=== PATIENT | male | born 1970 | race African-American/Black ===

== ENCOUNTER 2019-08-26 21:23 | Inpatient (IN) ==
[2019-08-26] MEDS ORDERED: ASPIRIN 325 MG TABLET PO STA (21:47)
[2019-08-26 21:56] LABS: Basophils % 0.4 % (0.0-0.8); Eosinophils # 0.1 10*3/uL (0.0-0.87); Eosinophils % 0.9 % (0.00-10.9); Hematocrit 45.1 VOL% (42.0-52.0); Hemoglobin 14.5 GM/DL (14.0-18.0); Immature Granulocytes % 0.3 %; Immature Granulocytes Absolute 0.03 #; Lymphocytes # 3.4 10*3/uL (1.4-4.0); Mean Corpuscular HGB Conc 32.2 GM/DL (32-36); Mean Corpuscular Volume 90.9 FL (87-102); Mean Platelet Volume 10.4 FL (9.6-12.0); Monocytes % 9.9 % (1.7-12.7); Neutrophils % 53.5 % (38.7-73.9); Platelet Count 267 T/CUMM (130-400); Red Blood Count 4.96 MC/CUMM (3.8-5.5); Red Cell Distribution Width 14.4 % (9.3-17.3); White Blood Count 9.8 T/CUMM (4-12)
[2019-08-26 22:18] LABS: Alanine Aminotransferase 23 U/L (16-61); Albumin 3.8 G/DL (3.4-5.0); Alkaline Phosphatase 114 U/L (45-117); Aspartate Amino Transferase 18 U/L (0-37); Bilirubin,Total < 0.39 MG/DL (0.2-1.0); Blood Urea Nitrogen 12 MG/DL (7-18); Calcium 9.5 MG/DL (8.5-10.1); Estimated Glom Filtration Rate 95 ML/MIN; Glucose 94 MG/DL (74-106); Osmolality,Calculated 276.5 MOS/KG (273-304); Total Protein 7.8 G/DL (6.4-8.3); Troponin I < 0.015 NG/ML (0.00-0.045)
[2019-08-26 22:36] LABS: INR 0.9; PT Patient Result 10.3 SECS (9.6-12.2)
[2019-08-26] MEDS ORDERED: MORPHINE 4 MG/1 ML VIAL IV PRN (22:40)
[2019-08-26] MEDS ORDERED: POTASSIUM CHLORIDE 20 MEQ TABLET PO PRN (22:40)
[2019-08-26] MEDS ORDERED: MAGNESIUM SULF RIDER 2 GM in PREMIX 1 EACH IV PRN (22:40)
[2019-08-26] MEDS ORDERED: DEXTROSE 50% 25 GM/50 ML VIAL IV PRN (22:40)
[2019-08-26] MEDS ORDERED: NITROGLYCERIN SL 0.4 MG TABLET SL PRN (22:40)
[2019-08-26] MEDS ORDERED: ONDANSETRON 4 MG/2 ML VIAL IV PRN (22:40)
[2019-08-26] MEDS ORDERED: BISACODYL 5 MG TABLET PO PRN (22:40)
[2019-08-26] MEDS ORDERED: GLUCAGON 1 MG VIAL IM PRN (22:40)
[2019-08-26] MEDS ORDERED: ACETAMINOPHEN 325 MG TABLET PO PRN (22:40)
[2019-08-26] MEDS ORDERED: ALUM/MAG/SIMETH/LIDO VISC 1:1 30 ML BOTTLE PO ONE (22:42)
[2019-08-27] MEDS ORDERED: cloNIDine 0.1 MG TABLET PO PRN (00:02)
[2019-08-27 00:29] LABS: Risk Ratio 5.46
[2019-08-27 01:42] LABS: CKMB % 5.1 %
[2019-08-27 01:45] LABS: Troponin I 1.42 NG/ML (0.00-0.045)
[2019-08-27] MEDS: ENOXAPARIN 100 MG/ML SYRINGE SUBCUT SCH ×2 (05:31→18:39)
[2019-08-27 06:30] LABS: Barbiturates Screen,Urine Negative (Negative); Benzodiazepines Screen,Urine Negative (Negative); Cannabinoid Screen,Urine Positive (Negative); Opiate Screen,Urine Negative (Negative); Phencyclidine Screen,Urine Negative (Negative)
[2019-08-27 08:31] LABS: CKMB % 7.3 %
[2019-08-27 08:34] LABS: Troponin I 2.21 NG/ML (0.00-0.045)
[2019-08-27] MEDS: ASPIRIN EC 325 MG TABLET PO SCH (09:05)
[2019-08-27] MEDS: PANTOPRAZOLE 40 MG TABLET PO SCH ×2 (09:05→09:07)
[2019-08-27] MEDS: amLODIPine 10 MG TABLET PO SCH (09:05)
[2019-08-27] MEDS ORDERED: DIAZEPAM 5 MG TABLET PO ONE (11:04)
[2019-08-27] MEDS ORDERED: diphenhydrAMINE CAP 25 MG CAPSULE PO ONE (11:04)
[2019-08-27] MEDS ORDERED: POTASSIUM CHLORIDE RIDER 10 MEQ in PREMIX 1 EACH IV PRN (11:04)
[2019-08-27] MEDS ORDERED: MAGNESIUM SULF RIDER 2 GM in PREMIX 1 EACH IV PRN (11:04)
[2019-08-27] MEDS: NORTRIPTYLINE 25 MG CAPSULE PO SCH (21:12)
[2019-08-28] MEDS: ENOXAPARIN 100 MG/ML SYRINGE SUBCUT SCH ×2 (05:23→08:57)
[2019-08-28] MEDS ORDERED: diphenhydrAMINE CAP 50 MG CAPSULE ONE (08:12)
[2019-08-28] MEDS ORDERED: DIAZEPAM 5 MG TABLET ONE (08:12)
[2019-08-28] MEDS: carvediloL 6.25 MG TABLET PO SCH ×2 (08:55→17:15)
[2019-08-28] MEDS: ASPIRIN EC 325 MG TABLET PO SCH (08:55)
[2019-08-28] MEDS: amLODIPine 10 MG TABLET PO SCH (08:55)
[2019-08-28] MEDS: PANTOPRAZOLE 40 MG TABLET PO SCH ×2 (08:56→09:02)
[2019-08-28] MEDS: SODIUM CHLORIDE 0.9% 1,000 ML IV SCH ×2 (08:58→23:23)
[2019-08-28] MEDS ORDERED: LIDOCAINE 1% 20 ML VIAL ONE (09:36)
[2019-08-28] MEDS ORDERED: HEPARIN/NACL 0.9% 2 UNITS/ML 1,000 ML IV ONE (09:36)
[2019-08-28] MEDS ORDERED: VERAPAMIL 5 MG/2 ML VIAL ONE (10:07)
[2019-08-28] MEDS ORDERED: NITROGLYCERIN DRIP 50 MG/250 ML BOTTLE IV ONE (10:07)
[2019-08-28] MEDS ORDERED: HYDROmorphone 2 MG/1 ML VIAL ONE (10:07)
[2019-08-28] MEDS ORDERED: MIDAZOLAM 2 MG/2 ML VIAL ONE (10:07)
[2019-08-28] MEDS ORDERED: TICAGRELOR 90 MG TABLET ONE (10:39)
[2019-08-28] MEDS ORDERED: SODIUM CHLORIDE 0.9% 1,000 ML IV SCH (11:00)
[2019-08-28] MEDS ORDERED: ATORVASTATIN 80 MG TABLET PO SCH (21:00)
[2019-08-28] MEDS: TICAGRELOR 90 MG TABLET PO SCH (22:14)
[2019-08-28] MEDS: NORTRIPTYLINE 25 MG CAPSULE PO SCH (22:14)
[2019-08-29 04:28] LABS: Basophils # 0.1 10*3/uL (0.0-0.2); Basophils % 0.6 % (0.0-0.8); Eosinophils # 0.1 10*3/uL (0.0-0.87); Hematocrit 46.2 VOL% (42.0-52.0); Hemoglobin 15.1 GM/DL (14.0-18.0); Immature Granulocytes % 0.3 %; Immature Granulocytes Absolute 0.03 #; Lymphocytes # 1.9 10*3/uL (1.4-4.0); Lymphocytes % 21.2 % (21.2-54.2); Mean Corpuscular HGB Conc 32.7 GM/DL (32-36); Mean Corpuscular Volume 90.4 FL (87-102); Mean Platelet Volume 10.5 FL (9.6-12.0); Monocytes % 9.3 % (1.7-12.7); Neutrophils % 67.6 % (38.7-73.9); Platelet Count 262 T/CUMM (130-400); Red Blood Count 5.11 MC/CUMM (3.8-5.5); Red Cell Distribution Width 14.6 % (9.3-17.3); White Blood Count 8.9 T/CUMM (4-12)
[2019-08-29 04:52] LABS: Calcium 9.4 MG/DL (8.5-10.1)
[2019-08-29 05:19] LABS: Troponin I 0.676 NG/ML (0.00-0.045)
[2019-08-29] MEDS: SODIUM CHLORIDE 0.9% 1,000 ML IV SCH (05:21)
[2019-08-29 08:20] VITALS: BP 148/85
[2019-08-29] MEDS: TICAGRELOR 90 MG TABLET PO SCH (08:21)
[2019-08-29] MEDS: carvediloL 6.25 MG TABLET PO SCH (08:23)
[2019-08-29] MEDS: PANTOPRAZOLE 40 MG TABLET PO SCH ×2 (08:23→08:36)
[2019-08-29] MEDS: amLODIPine 10 MG TABLET PO SCH (08:23)
[2019-08-29] MEDS ORDERED: ASPIRIN EC 81 MG TABLET PO SCH (09:00)
[2019-08-29] MEDS ORDERED: LOSARTAN 50 MG TABLET PO SCH (09:00)
[2019-08-29] MEDS ORDERED: ENOXAPARIN 40 MG/0.4 ML SYRINGE SUBCUT SCH (09:00)
== END 2019-08-29 11:07 | disposition home or self-care (01) | DRG 247 ==
LOC: N.EDINP 21:23 → N.ED 21:23 → N.TELES 23:11
PROVIDERS: ADMIT Hospitalist; ATTEND Hospitalist